=== PATIENT | male | born 1985 | race Caucasian/White ===

== ENCOUNTER 2023-02-10 05:39 | Emergency (ER) | payer OTHER, SELFPAY ==
[2023-02-10 05:42] VITALS: BP 136/90; PULSE 102; RESP 20; TEMP 37.3; O2SAT 99; BMI 26.6
[2023-02-10 06:10] LABS: Microscopic, Urine URINE MICROSCOPIC (MICROSCOPIC)
[2023-02-10 06:13] LABS: Appearance,Urine CLEAR (Clear); Bilirubin,Urine Negative (Negative); Blood, Urine Negative (Negative); Color,Urine YELLOW (Yellow); Glucose,Urine (UA) Negative (Negative); Ketones,Urine 1+ (Negative); Leukocyte Esterase,Urine Negative (Negative); Nitrate,Urine Negative (Negative); Protein,Urine TRACE (Negative); Specific Gravity, Urine >= 1.030 (1.005-1.030); Urobilinogen,Urine 0.2 EU/dl (0.2)
[2023-02-10 06:41] LABS: Bacteria,Urine Trace /lpf; Squamous Epithelial Cell,Urine Occasional #/hpf (0-5)
[2023-02-10 06:41] LABS: Strep Scrn Group A (Rapid) Negative (Negative)
--- NOTE | 2023-02-10 07:04 | [facility].EDGENADL ---
Discharge Plan Disposition Patient Disposition: Home, Self-Care Chief Complaint: Fever Referrals Follow up/Referrals: Fred Meneses [Primary Care Provider] - See instructions Activity Restrictions/Add. Instructions Additional Instructions/Restrictions: Call your family doctor to establish care for this visit to the emergency department and schedule follow-up within 48 hours to ensure improvement. If you have any worsening of your condition or any other concerning signs or symptoms, return to the emergency department or your primary care doctor for further evaluation. Take Tylenol 1000 mg every 6 hours (4 times daily) and ibuprofen 400 mg every 6 hours (4 times daily) as needed with food and water to prevent GI upset and kidney damage. Be sure to stay hydrated, steroid work over the period of 2 days to help with swelling. Clinical Impressions Clinical Impression: Pharyngitis Discharge ED Provider: Arnol Stafford General Adult HPI General Chief complaint: Fever Stated complaint: Back pain,possible kidney infection,sore throat Time Seen by Provider: 02/10/23 05:57 Mode of Arrival: Ambulatory Source of Information: Patient Limitations: No Limitations Description of Symptoms (Recalled from ER Triage Doc. by RN): Pt presents with strep throat symptoms that started this morning. Pt concerned because he has hx of reoccuring strep and had scarlet fever as a child. Also concerned about kidney function, states he has decreased UOP. UA and throat culture in lab. History of Present Illness HPI narrative: This is a 37-year-old male with history of strep pharyngitis complicated by rheumatic fever presenting with sore throat. Patient states that he woke up with a sore throat today, 02/10. Since that time, had progressively worsening sore throat. Denies voice changes, difficulty breathing, difficulty swallowing, pain with range of motion of neck, fevers, but has felt chilled. No cough, vomiting, diarrhea or sick contacts he knows of. He came to the ER for further evaluation given history of strep and concern for kidney dysfunction. [facility] Disclaimer: The information contained in this section may have been updated after the patient was seen, as this information can be updated by other users. Social History Smoking Status: Never smoker alcohol intake: never current occupational status: employed Travel in the last 8 weeks: None ROS Obtained: Yes All systems reviewed & no additional complaints except as documented Physical Exam General General appearance: alert, in no apparent distress and other ( ) Head Head exam: atraumatic and normocephalic Eye Eye exam: Present normal appearance, PERRL and EOMI ENT ENT exam: Present mucous membranes dry and other (Pharyngeal erythema with tonsillitis and exudates. No evidence of uvular deviation, palatal swelling, dental abscess, angioedema, or other abnormal leo pharyngeal findings) Neck Neck exam: Present normal inspection, full ROM and trachea midline Respiratory Respiratory exam: Absent respiratory distress, wheezes, stridor, accessory muscle use or prolonged expiratory phase Cardiovascular Cardiovascular exam: Present regular rate and normal rhythm Abdominal Exam Abdominal exam: Present soft; Absent distention, tenderness, guarding, rebound, rigidity or normal bowel sounds Extremities Exam Extremities exam: Absent edema Neurological Exam Neurological exam: Present alert, oriented X3, CN II-XII intact and normal gait; Absent motor sensory deficit Skin Skin exam: Present warm and dry; Absent diaphoresis or erythema Medical Decision Making Medical Records Medical records reviewed: Yes I reviewed the patient's medical records. Bhavesh Inquiry Pt receiving controlled substance: No Bhavesh was queried for this patient: No Vital Signs: 02/10/23 05:42 Temperature 99.2 F Temperature Source Oral Pulse Rate [Left] 102 H Respiratory Rate 20 Blood Pressure [Right Arm] 136/90 Blo
[2023-02-10 07:18] VITALS: BP 133/88; PULSE 82; RESP 19; TEMP 36.8; O2SAT 98
== END 2023-02-10 07:23 | disposition home or self-care (01) ==
PROVIDERS: Emergency Provider Emergency Medicine; PCP Family Medicine
DX: J02.9 Acute pharyngitis, unspecified (principal); M54.2 Cervicalgia; M54.9 Dorsalgia, unspecified; Z86.19 Personal history of other infectious and parasitic diseases
CPT/HCPCS: 81001; 87430; 99283